=== PATIENT | male | born 2005 ===

== ENCOUNTER 2025-01-02 05:39 | Outpatient (CLI) | payer OTHER, SELFPAY | END 2025-01-02 05:40 | disposition home or self-care (01) | LOC: AMB 01-05 15:48 | PROVIDERS: Visit Provider Family Medicine | DX: S29.9XXA Unspecified injury of thorax, initial encounter (principal); V47.0XXA Car driver injured in collision with fixed or stationary object in nontraffic accident, initial encounter; Y92.415 Exit ramp or entrance ramp of street or highway as the place of occurrence of the external cause | CPT/HCPCS: A0425; A0427 ==